=== PATIENT | female | born 1950 | race Caucasian/White ===

== ENCOUNTER 2017-06-16 08:20 | Emergency (ER) | payer OTHER ==
[~2017-06-16] VITALS: Ht 160 cm; Wt 65.5 kg
[2017-06-16 08:23] VITALS: BP 149/72; PULSE 71; RESP 18; TEMP 98.5; O2SAT 98
[2017-06-16] MEDS ORDERED: PRAV40TA2 PO (08:35)
[2017-06-16] MEDS ORDERED: AMLO5TAB2 PO (08:35)
[2017-06-16] MEDS ORDERED: ULTR50TA5 PO (08:39)
--- NOTE | 2017-06-16 08:39 | PD ---
HPI Chief Complaint: Injury Time Seen by Provider: 08:28 Travel History International Travel<30 days: No Contact w/Intl Traveler<30days: No Traveled to known affect area: No History of Present Illness HPI 67-year-old female presents emergency department after feeling a pop in her right calf yesterday. 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 She states been hurting her every time she takes a step and when she plantar flexes her foot. She denies a history of fall, she is able to bear weight. Denies any other injuries. Denies history of blood clots shortness of breath and leg swelling. PFSH Past Medical History Medical History: Denies Significant Hx ?: Not Past Surgical History Surgical History: No Previous Surgery Family History Family History: Negative Social History Tobacco Use: No Allergies-Medications (Allergen,Severity, Reaction): Coded Allergies: No Known Allergies (Unverified , 06/16/17) Reported Meds & Prescriptions Reported Meds & Active Scripts Active Ultram (Tramadol HCl) 50 Mg Tab 50 Mg PO Q6H PRN Reported Pravastatin 40 Mg Tab 40 Mg PO DAILY Amlodipine (Amlodipine Besylate) 5 Mg Tab 5 Mg PO DAILY Review of Systems Except as stated in HPI: all other systems reviewed are Neg Physical Exam Narrative GENERAL: Well-nourished, well-developed patient. SKIN: Focused skin assessment warm/dry. HEAD: Normocephalic. EYES: No scleral icterus. No injection or drainage. NECK: Supple, trachea midline. No JVD or lymphadenopathy. CARDIOVASCULAR: Regular rate and rhythm without murmurs, gallops, or rubs. RESPIRATORY: Breath sounds equal bilaterally. No accessory muscle use. GASTROINTESTINAL: Abdomen soft, non-tender, nondistended. MUSCULOSKELETAL: There is no edema of either lower extremity, no bruising, there is minimal tenderness throughout the entire gastrointestinal muscle, no bruising is appreciated. The Sparks test shows an intact Achilles tendon. She is able to plantar and dorsiflex her foot the former causes significant tenderness to her. Pulse motor and sensory are intact distally. There is no bony tenderness of the knee tibia fibula ankle or foot. The left leg is nontender. BACK: Nontender without obvious deformity. No CVA tenderness. Data Data Last Documented VS Vital Signs Date Time Temp Pulse Resp B/P (MAP) Pulse Ox O2 Delivery O2 Flow Rate FiO2 06/16/17 08:23 98.5 71 18 149/72 (97) 98 Orders Orders Acetaminophen (Tylenol) (06/16/17 08:45) MDM Medical Decision Making Medical Screen Exam Complete: Yes Emergency Medical Condition: Yes Differential Diagnosis Gastrointestinal as muscle strain, Achilles rupture, bony injury unlikely, DVT is highly unlikely. Narrative Course patient roomed in emergency department, significant only tender over the whole of the gastric emesis muscle. There is no swelling. The patient is very low risk for DVT (wells -2). No indication for x-ray examination at this time. Diagnosis Primary Impression: Gastrocnemius strain Qualified Codes: S86.111A - Strain of other muscle(s) and tendon(s) of posterior muscle group at lower leg level, right leg, initial encounter Patient Instructions: General Instructions, RICE Therapy (ED) Med/Other Pt SpecificInfo: Prescription(s) given Scripts Tramadol (Ultram) 50 Mg Tab 50 MG PO Q6H Y for PAIN, #15 TAB 0 Refills Prov: Asif Damian MD 06/16/17 Disposition: 01 DISCHARGE HOME Condition: Stable Asif Damian MD Jun 16, 2017 08:39
[2017-06-16] MEDS ORDERED: ACETAMINOPHEN 500 MG CPLT PO ONE (08:45)
== END 2017-06-16 09:00 | disposition home or self-care (01) ==
LOC: PHED 08:20
DX: S86.111A Strain of other muscle(s) and tendon(s) of posterior muscle group at lower leg level, right leg, initial encounter (principal); X50.0XXA Overexertion from strenuous movement or load, initial encounter; Y93.F9 Activity, other caregiving
CPT/HCPCS: 99283